=== PATIENT | male | born 2000 | race Caucasian/White ===

== ENCOUNTER 2020-12-01 19:32 | Emergency (ER) | payer SELFPAY ==
--- NOTE | 2020-12-01 20:29 | EDM.PDOC ---
ED HPI GENERAL MEDICAL PROBLEM - General Chief Complaint: Respiratory Problem Stated Complaint: RUNNY NOSE, HEADACHE, COUGH Time Seen by Provider: 12/01/20 20:23 Source of Information: Reports: Patient History Limitations: Reports: No Limitations - History of Present Illness INITIAL COMMENTS - FREE TEXT/NARRATIVE: 20M no PMHx presents for 4 days of worsening sinus congestion, sore throat, non- productive cough, CALERO, and body aches. No fevers noted at home. Still has sense of taste, no sense of smell. Has not had COVID or vaccine. Nose Pain Score (Numeric/FACES): 7 - Related Data Allergies Allergy/AdvReac Type Severity Reaction Status Date / Time No Known Allergies Allergy Verified 12/01/20 20:22 Home Meds: Home Meds Amoxicillin/Potassium Clav [Augmentin 875-125 Tablet] 1 each PO BID 7 Days #14 tablet 12/01/20 [Rx] Pseudoephedrine HCl [Sudafed 24-Hour] 240 mg PO DAILY PRN #14 tab.er.24h 12/01/20 [Rx] ED ROS GENERAL - Review of Systems Review Of Systems: Comprehensive ROS is negative, except as noted in HPI. ED EXAM, GENERAL - Physical Exam Exam: See Below Exam Limited By: No Limitations General Appearance: Alert, WD/WN, No Apparent Distress Ears: Hearing Grossly Normal Nose: Normal Inspection Throat/Mouth: Normal Inspection, Normal Oropharynx, Normal Voice, No Airway Compromise Head: Atraumatic, Normocephalic Neck: Normal Inspection Respiratory/Chest: No Respiratory Distress, Lungs Clear, Normal Breath Sounds, No Accessory Muscle Use Cardiovascular: Normal Peripheral Pulses, Regular Rate, Rhythm Extremities: Normal Inspection Neurological: Alert Psychiatric: Normal Affect, Normal Mood Skin Exam: Warm, Dry, Intact, Normal Color Course - Vital Signs Last Recorded V/S: Last Vital Signs Temp 98.3 F 12/01/20 20:45 Pulse 14 L 12/01/20 20:22 Resp 14 12/01/20 20:22 BP 129/72 12/01/20 20:22 Pulse Ox 97 12/01/20 20:22 - Orders/Labs/Meds Labs: Laboratory Tests 12/01/20 Range/Units 21:00 Influenza Type A RNA NEGATIVE (NEGATIVE) Influenza Type B RNA NEGATIVE (NEGATIVE) SARS-CoV-2 RNA ([facility]) NEGATIVE (NEGATIVE) Meds: Medications Discontinued Medications Generic Name Dose Route Start Last Admin Trade Name Kapilq PRN Reason Stop Dose Admin Acetaminophen 1,000 mg 12/01/20 20:34 12/01/20 20:45 Acetaminophen 500 Mg Tab PO 12/01/20 20:35 1,000 mg ONETIME ONE Administration Ketorolac Tromethamine 30 mg 12/01/20 20:34 12/01/20 20:44 Ketorolac 30 Mg/Ml Sdv IM 12/01/20 20:35 30 mg ONETIME ONE Administration Pseudoephedrine HCl 30 mg 12/01/20 20:34 12/01/20 21:26 Pseudoephedrine 30 Mg Tab PO 12/01/20 20:35 30 mg ONETIME ONE Administration - Re-Assessments/Exams Free Text/Narrative Re-Assessment/Exam: 12/01/20 20:36 Will get COVID and influenza swabbing. Will get CXR. Will treat symptomatically with toradol, tylenol, sudafed 12/01/20 22:06 Chest x-ray, Covid, influenza swabbing is all negative. Will discharge patient with symptomatic relief medications and augmentin for sinusitis Departure - Departure Time of Disposition: 22:07 Disposition: Home, Self-Care 01 Condition: Good Clinical Impression: Upper respiratory disease Sinusitis Qualifiers: Sinusitis location: frontal Chronicity: acute Recurrence: non-recurrent Qualified Code(s): J01.10 - Acute frontal sinusitis, unspecified - Discharge Information Prescriptions: Amoxicillin/Potassium Clav [Augmentin 875-125 Tablet] 1 each PO BID 7 Days #14 tablet Pseudoephedrine HCl [Sudafed 24-Hour] 240 mg PO DAILY PRN #14 tab.er.24h PRN Reason: Congestion Instructions: Sinusitis, Adult Referrals: PCP,None [Primary Care Provider] - Forms: ED Department Discharge Additional Instructions: The following information is given to patients seen in the emergency department who are being discharged to home. This information is to outline your options for follow-up care. We provide all patients seen in our emergency department with a follow-up referral. The need for follow-up, as well as the timing and circumstances, are variable depending upon the specifics of your emergency department visit. If you don't have a primary care physician on staff, we will provide you with a referral. We always advise you to contact your personal physician following an emergency department visit to inform them of the circumstance of the visit and for follow-up with them and/or the need for any referrals to a consulting specialist. The emergency department will also refer you to a specialist when appropriate. This referral assures that you have the opportunity for follow-up care with a specialist. All of these measure are taken in an effort to provide you with optimal care, which includes your follow-up. Under all circumstances we always encourage you to contact your private physician who remains a resource for coordinating your care. When calling for follow-up care, please make the office aware that this follow-up is from your recent emergency room visit. If for any reason you are refused follow-up, please contact the [facility] Emergency Department at and asked to speak to the emergency department charge nurse. Please follow up with your primary care physician. If you do not have a primary care physician, see below: [facility] [address] [place] [id number] [facility] [address] [place] [id number] [facility] [address] [place] [id number] Sepsis Event Note (ED) - Evaluation Sepsis Screening Result: No Definite Risk - Focused Exam Vital Signs: Vital Signs Temp Temp Pulse Resp BP Pulse Ox 12/01/20 20:45 98.3 F 12/01/20 20:22 98.3 F 14 L 14 129/72 97
[2020-12-01] MEDS ORDERED: Ketorolac 30 MG/ML SDV IM ONE (20:34)
[2020-12-01] MEDS ORDERED: Acetaminophen 500 MG Tab PO ONE (20:34)
[2020-12-01] MEDS ORDERED: Pseudoephedrine 30 MG Tab PO ONE (20:34)
[2020-12-01 21:44] LABS: CORONAVIRUS COVID-19 NAA NEGATIVE (NEGATIVE); INFLUENZA A NAA NEGATIVE (NEGATIVE); INFLUENZA B NAA NEGATIVE (NEGATIVE)
--- NOTE | 2020-12-01 21:47 | CR ---
INDICATION: Cough. TECHNIQUE: AP portable chest x-ray 2 views. FINDINGS: The heart size normal. No focal infiltrate or consolidation in either lung. Small amount of triangular-shaped opacity in the left lung base along the lower heart border and hemidiaphragm may be related to atelectasis. Mild thoracic curve. Mild soft tissue prominence in the left suprahilar region could be related overlapping prominent vascular shadows which would be favored over mild lymph node prominence. Chest otherwise negative without acute disease. Dictated by Leroy Gracia MD @ 12/01/2020 9:45:[address] Leroy Gracia @ Dec 01 2020 9:45PM
== END 2020-12-01 22:28 | disposition home or self-care (01) ==
LOC: MW.ED 19:32
DX: J01.10 Acute frontal sinusitis, unspecified (principal); J39.9 Disease of upper respiratory tract, unspecified; Z20.822 Contact with and (suspected) exposure to COVID-19
CPT/HCPCS: 0240U; 71045; 96372; 99283; A9270; J1885

== ENCOUNTER 2020-12-04 14:40 | Emergency (ER) | payer SELFPAY ==
--- NOTE | 2020-12-04 15:04 | EDM.PDOC ---
ED HPI GENERAL MEDICAL PROBLEM - General Chief Complaint: ENT Problem Stated Complaint: SINUSES Time Seen by Provider: 12/04/20 14:42 Source of Information: Reports: Patient History Limitations: Reports: No Limitations - History of Present Illness INITIAL COMMENTS - FREE TEXT/NARRATIVE: HISTORY AND PHYSICAL: History of present illness: Patient is a 20-year-old male who presents to the emergency room with complaints of sinus pressure, nasal drainage, cough and sinus headache. States he has had symptoms for approximately 6 days. He was seen in the emergency room on 12/01/2020 and was prescribed Sudafed and what he thought was Tylenol. Reviewing the chart it is noted he is prescribed Sudafed and Augmentin. Unsure if patient has been taking the Augmentin correctly. He states he was tested for COVID-19 at that time, was negative. Patient denies any fever, chills, change in vision, syncope or near syncope. Denies any chest pain, back pain, shortness of breath or cough. Denies any abdominal pain, nausea, vomiting, diarrhea, constipation or dysuria. Has not noted any blood in urine or stool. Patient has been eating and drinking appropriately. Review of systems: As per history of present illness and below otherwise all systems reviewed and negative. Past medical history: As per history of present illness and as reviewed below otherwise noncontributory. Surgical history: As per history of present illness and as reviewed below otherwise noncontributory. Social history: See social history for further information Family history: As per history of present illness and as reviewed below otherwise noncontributory. Physical exam: General: Well developed and well nourished. Alert and orientated x 3. Nontoxic in appearance and in no acute distress. Vital signs are stable and have been reviewed by me. Nursing notes were reviewed. HEENT: Atraumatic, normocephalic, pupils equal and reactive bilaterally, negative for conjunctival pallor or scleral icterus, mucous membranes moist, right TM erythematous at the 2 o'clock position with good light reflex and no bulging, left TM normal normal bilaterally, throat clear, neck supple, nontender, trachea midline. Bilateral maxillary sinus tenderness to palpation. Nasal drainage is noted. No drooling or trismus noted. No meningeal signs. No hot potato voice noted. Lungs: Clear to auscultation bilaterally. No wheezes, rales, or rhonchi. Chest nontender. Normal work of breathing, no accessory muscles used. Heart: S1S2, regular rate and rhythm without overt murmur, gallops, or rubs. No JVD. No peripheral edema Abdomen: Soft, nondistended, nontender. Normoactive bowel sounds. Negative for masses or costovertebral tenderness. Skin: Intact, warm, dry. No lesions or rashes noted. Hematologic: No petechiae or purpra. Mucosa appropriate color and normal nail bed color and refill. Extremities: Atraumatic, moves all extremities per self without difficulty or deficits, negative for cords or calf pain. Neurovascular unremarkable. Neuro: Awake, alert, oriented. Cranial nerves II through XII unremarkable. Cerebellum unremarkable. Motor and sensory unremarkable throughout. Exam nonfocal. Psychiatric: Mood and affect are appropriate. Normal thought process. Answering questions appropriately. Notes: *This patient was seen and evaluated during the 2019 SARS-CoV-2 novel coronavirus pandemic period. Community viral transmission is ongoing at time of this encounter and the emergency department is operating under pandemic response procedures. 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 He will double check at home. I have represcribed the Augmentin for him along with home care measures. I have talked with the patient about today's findings, in addition to providing specific details for plan of care. Reassessment at the time of disposition demonstrates that the patient is in no acute distress. The patient is stable for discharge, counseling was provided and we discussed in great detail signs and symptoms that would prompt them to return to the Emergency Department. Medication, follow up and supportive care measures were reviewed and discussed. Voices understanding and is agreeable to plan of care. Denies any further questions or concerns at this time. Diagnostics: None Therapeutics: None Prescription: Augmentin Impression: Sinusitis Plan: 1. You were evaluated today on an emergent basis. You were prescribed Augmentin, which is the correct antibiotic for sinus/respiratory infection. Please double check your medication at home to see what you're taking. I have re-prescribed this, if it wasn't filled. 2. You can alternate Tylenol and ibuprofen as needed for pain and fever management. 3. We encourage you to follow up with your primary care provider and/or recommended specialist in the next few days for re-evaluation and further care/management. 4. If your symptoms should worsen, new symptoms develop or any of the signs and symptoms we discussed should arise please return to the emergency room or call 911 (if needed). Definitive disposition and diagnosis as appropriate pending reevaluation and review of above. Coughing Pain Score (Numeric/FACES): 6 - Related Data Allergies Allergy/AdvReac Type Severity Reaction Status Date / Time No Known Allergies Allergy Verified 12/04/20 15:22 Home Meds: Home Meds Amoxicillin/Clavulanate K [Augmentin 875-125 MG] 1 tab PO BID 10 Days #20 tablet 12/04/20 [Rx] Amoxicillin/Potassium Clav [Augmentin 875-125 Tablet] 1 tab PO DAILY 12/04/20 [History] Naproxen Sodium/Pseudoephedrin [Sudafed Sinus 12Hr Pressr-Pain] 1 tab PO DAILY 12/04/20 [History] Past Medical History - Past Health History Medical/Surgical History: Denies Medical/Surgical History - Infectious Disease History Infectious Disease History: Reports: None Social & Family History - Family History Family Medical History: No Pertinent Family History - Caffeine Use Caffeine Use: Reports: Coffee, Energy Drinks ED ROS ENT - Review of Systems Review Of Systems: Comprehensive ROS is negative, except as noted in HPI. ED EXAM, ENT - Physical Exam Exam: See Below (See dictation) Course - Vital Signs Last Recorded V/S: Last Vital Signs Temp 97.2 F 12/04/20 15:24 Pulse 90 12/04/20 15:24 Resp 17 12/04/20 15:24 BP 118/70 12/04/20 15:24 Pulse Ox 96 12/04/20 15:24 Departure - Departure Time of Disposition: 15:29 Disposition: Home, Self-Care 01 Clinical Impression: Sinusitis Qualifiers: Sinusitis location: frontal Chronicity: acute Recurrence: non-recurrent Qualified Code(s): J01.10 - Acute frontal sinusitis, unspecified - Discharge Information Prescriptions: Amoxicillin/Clavulanate K [Augmentin 875-125 MG] 1 tab PO BID 10 Days #20 tablet Instructions: Sinusitis, Adult, [id number] Referrals: PCP,None [Primary Care Provider] - Forms: ED Department Discharge Additional Instructions: The following information is given to patients seen in the emergency department who are being discharged to home. This information is to outline your options for follow-up care. We provide all patients seen in our emergency department with a follow-up referral. The need for follow-up, as well as the timing and circumstances, are variable depending upon the specifics of your emergency department visit. If you don't have a primary care physician on staff, we will provide you with a referral. We always advise you to contact your personal physician following an emergency department visit to inform them of the circumstance of the visit and for follow-up with them and/or the need for any referrals to a consulting specialist. The emergency department will also refer you to a specialist when appropriate. This referral assures that you have the opportunity for follow-up care with a specialist. All of these measure are taken in an effort to provide you with optimal care, which includes your follow-up. Under all circumstances we always encourage you to contact your private physician who remains a resource for coordinating your care. When calling for follow-up care, please make the office aware that this follow-up is from your recent emergency room visit. If for any reason you are refused follow-up, please contact the [facility] Emergency Department at and asked to speak to the emergency department charge nurse. [facility] [address] [place] [address] [id number] [address] Thank you for choosing the [facility] emergency department in [place] for your medical needs today. It was a pleasure caring for you. Today you were seen in the emergency department for sinus infection. 1. You were evaluated today on an emergent basis. You were prescribed Augmentin, which is the correct antibiotic for sinus/respiratory infection. Please double check your medication at home to see what you're taking. I have re-prescribed this, if it wasn't filled. 2. You can alternate Tylenol and ibuprofen as needed for pain and fever management. 3. We encourage you to follow up with your primary care provider and/or recommended specialist in the next few days for re-evaluation and further care/management. 4. If your symptoms should worsen, new symptoms develop or any of the signs and symptoms we discussed should arise please return to the emergency room or call 911 (if needed). Sepsis Event Note (ED) - Focused Exam Vital Signs: Vital Signs Temp Pulse Resp BP Pulse Ox 12/04/20 15:24 97.2 F 90 17 118/70 96
== END 2020-12-04 15:45 | disposition home or self-care (01) ==
LOC: MW.ED 14:40
DX: J01.10 Acute frontal sinusitis, unspecified (principal)
CPT/HCPCS: 99283

== ENCOUNTER 2022-03-30 12:59 | Emergency (ER) | payer BC ==
[2022-03-30 13:53] LABS: CORONAVIRUS COVID-19 NAA NEGATIVE (NEGATIVE); INFLUENZA A NAA NEGATIVE (NEGATIVE); INFLUENZA B NAA NEGATIVE (NEGATIVE)
[2022-03-30] MEDS ORDERED: Ketorolac 60 MG/2 ML SDV IM ONE (15:05)
[2022-03-30] MEDS ORDERED: Sodium Chloride 0.9% 10 ML Syringe FLUSH PRN (15:05)
[2022-03-30] MEDS ORDERED: Sodium Chloride 0.9% 1,000 ML IV ONE (15:05)
[2022-03-30] MEDS ORDERED: Sodium Chloride 0.9% 2.5 ML Syringe FLUSH PRN (15:05)
[2022-03-30] MEDS ORDERED: Ketorolac 30 MG/ML SDV IVPUSH ONE (15:52)
[2022-03-30 16:58] LABS: CARBON DIOXIDE,CO2 28.2 mmol/L (21.0-32.0)
== END 2022-03-30 18:28 | disposition home or self-care (01) ==
LOC: MW.ED 12:59
DX: R07.9 Chest pain, unspecified (principal); B34.9 Viral infection, unspecified; Z20.822 Contact with and (suspected) exposure to COVID-19
CPT/HCPCS: 0240U; 36415; 71045; 80053; 83735; 84484; 85025; 85610; 87634; 93005; 96361; 96374; 99285; J1885; J3490; J7030

== ENCOUNTER 2022-04-02 09:13 | Emergency (ER) | payer BC ==
[2022-04-02] MEDS ORDERED: Metoclopramide 10 MG/2 ML SDV IVPUSH ONE (10:22)
[2022-04-02] MEDS ORDERED: Ketorolac 30 MG/ML SDV IVPUSH ONE (10:23)
[2022-04-02] MEDS ORDERED: Lactated Ringers 1,000 ML IV SCH (10:30)
[2022-04-02] MEDS ORDERED: Sodium Chloride 0.9% 1,000 ML IV ONE (11:11)
== END 2022-04-02 11:53 | disposition home or self-care (01) ==
LOC: MW.ED 09:13
DX: G43.909 Migraine, unspecified, not intractable, without status migrainosus (principal); J01.10 Acute frontal sinusitis, unspecified; B34.9 Viral infection, unspecified; G44.209 Tension-type headache, unspecified, not intractable
CPT/HCPCS: 96361; 96374; 96375; 99283; J1885; J2765; J7030; J7120